=== PATIENT | male | born 1990 | race Caucasian/White ===

== ENCOUNTER 2024-05-11 17:37 | Inpatient (IN) | payer SELFPAY ==
[~2024-05-11] VITALS: Ht 175.3 cm; Wt 89.9 kg
[2024-05-11] MEDS: ketOROlac 60 MG VIAL (30MG/ML) IM ONE (20:03)
[2024-05-11] MEDS: CYCLOBENZAPRINE HCL 10 MG TABLET PO ONE (20:03)
[2024-05-11 20:49] LABS: BASOPHILS # (AUTO) 0.03 K/uL (0.00-0.20); BASOPHILS % (AUTO) 0.3 % (0.0-5.0); EOSINOPHILS # (AUTO) 0.04 K/uL (0.00-0.70); EOSINOPHILS % (AUTO) 0.3 % (0.0-8.0); HEMATOCRIT 45.9 % (42-54); IMMATURE GRANULOCYTE ABSOLUTE 0.05 K/uL (0-1); LYMPHOCYTES # (AUTO) 1.1 K/uL (1.0-4.8); LYMPHOCYTES % (AUTO) 9.8 % (21.0-51.0); MEAN CORPUSCULAR HEMOGLOBIN 31.1 pg (27.0-33.0); MEAN CORPUSCULAR HGB CONC 34.9 g/dL (32.0-36.0); MEAN CORPUSCULAR VOLUME 89.3 fL (79-99); MONOCYTES # (AUTO) 0.8 K/uL (0.1-1.0); MONOCYTES % (AUTO) 6.9 % (3.0-13.0); NEUTROPHILS # (AUTO) 9.5 K/uL (1.8-7.7); NEUTROPHILS % (AUTO) 82.3 % (40.0-77.0); PLATELET COUNT (AUTO) 235 K/uL (130-400); RED BLOOD CELL COUNT(AUTO) 5.14 MIL/uL (4.50-6.20); RED CELL DISTRIBUTION WIDTH 12.4 % (11.0-15.5); WHITE BLOOD COUNT (AUTO) 11.5 K/uL (4.8-10.8)
[2024-05-11 20:58] LABS: POTASSIUM 3.6 mmol/L (3.5-5.1)
[2024-05-11 21:07] LABS: INFLUENZA TYPE A Negative For Type A (NEGATIVE); INFLUENZA TYPE B Negative For Type B (NEGATIVE)
[2024-05-11 21:08] LABS: RAPID GROUP A STREP negative (NEGATIVE)
[2024-05-11 21:10] LABS: COVID19 (SARS ANTIGEN RAPID) PRESUMPTIVE NEGATIVE (NEGATIVE)
[2024-05-11] MEDS: ondanSETRON 4MG INJ IVP ONE (21:35)
[2024-05-11] MEDS: hydroMORPHone 0.5 MG SYG (0.5MG/0.5ML) IVP ONE (21:35)
[2024-05-11] MEDS ORDERED: doCUSate SODIUM 100 MG CAP PO PRN (22:30)
[2024-05-11] MEDS ORDERED: acetaMINOPHEN 650 MG SUPPOSITORY RC PRN (22:30)
[2024-05-11] MEDS ORDERED: acetaMINOPHEN 325 MG TAB PO PRN (22:30)
[2024-05-11] MEDS ORDERED: LACTULOSE 20 GM/30 ML UDCUP PO PRN (22:30)
[2024-05-11] MEDS ORDERED: hydrALAZine 20MG/ML VIAL IV PRN (22:30)
[2024-05-11] MEDS: GABApentin 100 MG CAPSULE PO SCH (23:03)
[2024-05-11] MEDS: LACTATED RINGERS 1000ML 1,000 ML IV SCH (23:03)
[2024-05-11] MEDS: LIDOCAINE 4% ADH..PATCH TP SCH (23:03)
[2024-05-11] MEDS ORDERED: MAGNESIUM 2GM PREMIX 50ML 50 ML IV PRN (23:30)
[2024-05-11] MEDS ORDERED: PoTASSium chl 10% ELIXIR 20MEQ 20 MEQ/15 ML UDCUP PO PRN (23:30)
[2024-05-11] MEDS ORDERED: DEXTROSE 50%-WATER 50 ML DISP.SYRIN IV PRN (23:30)
[2024-05-11] MEDS ORDERED: GLUCAGON 1MG KIT 1 MG ML IM PRN (23:30)
[2024-05-11] MEDS ORDERED: PoTASSium chloRIDE 20MEQ/100ML 100 ML IV PRN (23:30)
[2024-05-11] MEDS ORDERED: PoTASSium chloRIDE 20MEQ ER 20 MEQ ERTAB PO PRN (23:30)
[2024-05-11 23:45] VITALS: BP 116/67; PULSE 76; RESP 19; TEMP 98.6
[2024-05-12] MEDS: 0.9%NACL 1000ML 1,000 ML IV SCH
[2024-05-12 05:07] VITALS: BP 115/71; PULSE 74; RESP 18; TEMP 98.8
[2024-05-12 05:30] LABS: BASOPHILS # (AUTO) 0.03 K/uL (0.00-0.20); BASOPHILS % (AUTO) 0.3 % (0.0-5.0); EOSINOPHILS # (AUTO) 0.12 K/uL (0.00-0.70); EOSINOPHILS % (AUTO) 1.3 % (0.0-8.0); HEMATOCRIT 44.4 % (42-54); IMMATURE GRANULOCYTE ABSOLUTE 0.06 K/uL (0-1); LYMPHOCYTES # (AUTO) 1.3 K/uL (1.0-4.8); MEAN CORPUSCULAR HGB CONC 34.2 g/dL (32.0-36.0); MEAN CORPUSCULAR VOLUME 90.6 fL (79-99); MONOCYTES # (AUTO) 0.7 K/uL (0.1-1.0); MONOCYTES % (AUTO) 8.3 % (3.0-13.0); NEUTROPHILS # (AUTO) 6.7 K/uL (1.8-7.7); NEUTROPHILS % (AUTO) 74.4 % (40.0-77.0); PLATELET COUNT (AUTO) 239 K/uL (130-400); RED CELL DISTRIBUTION WIDTH 12.6 % (11.0-15.5)
[2024-05-12 06:03] LABS: CREATININE 1.2 mg/dL (0.5-1.3); PHOSPHORUS 3.9 mg/dL (2.5-4.9); POTASSIUM 3.8 mmol/L (3.5-5.1); THYROID STIMULATING HORMONE 1.05 uIU/mL (0.36-3.74)
[2024-05-12] MEDS: INSULIN humuLIN R 100 UNIT/ML 3ML SQ SCH (06:35)
[2024-05-12] MEDS: hydroMORPHone 1 MG INJ IVP PRN (06:55)
[2024-05-12 08:00] VITALS: BP 115/71; PULSE 63; RESP 14; TEMP 100.1; O2SAT 92
[2024-05-12] MEDS ORDERED: APIXaban 5 MG TABLET PO SCH (09:00)
[2024-05-12] MEDS: PANTOPrazole 40 MG/VIAL IVP SCH (10:33)
[2024-05-12 12:00] VITALS: BP 119/78; PULSE 62; RESP 20; TEMP 98.6
[2024-05-12 16:00] VITALS: BP 110/76; PULSE 104; RESP 20; TEMP 99.6
[2024-05-12 20:00] VITALS: BP 135/81; PULSE 92; RESP 16; TEMP 100.6; O2SAT 98
[2024-05-12] MEDS: HYDROcodone/APAP 5/325 1 TAB TABLET PO PRN (20:35)
[2024-05-12 22:03] LABS: ADD UA MICROSCOPIC YES; APPEARANCE,URINE CLEAR (CLEAR); BILIRUBIN,URINE NEGATIVE (NEGATIVE); COLOR,URINE COLORLESS (YELLOW); GLUCOSE, URINE (UA) NEGATIVE (NEGATIVE); KETONES,URINE NEGATIVE (NEGATIVE); LEUKOCYTE ESTERASE ,URINE NEGATIVE Leu/uL (NEGATIVE); NITRATE,URINE NEGATIVE (NEGATIVE); OCCULT BLOOD,URINE NEGATIVE (NEGATIVE); PH,URINE 6.5 (5.0-8.0); PROTEIN,URINE NEGATIVE (NEGATIVE); UROBILINOGEN,URINE 0.2 mg/dL (0.2-1.0)
[2024-05-12 22:06] LABS: RBC,URINE 0-1 /HPF (0-1); WBC,URINE 0-1 /HPF (0-1)
[2024-05-13] VITALS (30 sets, daily range): BP systolic 110–136; BP diastolic 62–89; PULSE 59–90; RESP 14–19; TEMP 97.8–98.8; O2SAT 97–98
[2024-05-13 04:41] LABS: HEMATOCRIT 43.6 % (42-54); MEAN CORPUSCULAR HEMOGLOBIN 30.8 pg (27.0-33.0); MEAN CORPUSCULAR HGB CONC 33.5 g/dL (32.0-36.0); RED BLOOD CELL COUNT(AUTO) 4.74 MIL/uL (4.50-6.20); RED CELL DISTRIBUTION WIDTH 12.4 % (11.0-15.5); WHITE BLOOD COUNT (AUTO) 9.1 K/uL (4.8-10.8)
[2024-05-13 04:50] LABS: CREATININE 1.1 mg/dL (0.5-1.3); POTASSIUM 3.9 mmol/L (3.5-5.1)
[2024-05-13] MEDS: ondanSETRON 4MG INJ IVP PRN (09:27)
[2024-05-13] MEDS: LACTATED RINGERS 1000ML 1,000 ML IV ONE (10:45)
[2024-05-13] MEDS ORDERED: LIDOCAINE PF 100MG/5ML (2%) SYRINGE 5ML ONE (11:05)
[2024-05-13] MEDS ORDERED: dexaMETHasone SOD PHOSPHATE 10MG/ML 1ML VIAL ONE (11:06)
[2024-05-13] MEDS ORDERED: proPOFol 10 MG/ML 20ML VIAL IV ONE (11:06)
[2024-05-13] MEDS ORDERED: FENTanyl CITRate PF 50 MCG/1 ML 2ML VIAL ONE ×3 (11:06→15:42)
[2024-05-13] MEDS ORDERED: SUCCINYLCHOLINE CHLORIDE 20 MG/ML 10 ML VIAL ONE (11:06)
[2024-05-13] MEDS ORDERED: MIDAZOLAM HCL 1 MG/ML 2ML VIAL ONE (11:06)
[2024-05-13] MEDS ORDERED: ondanSETRON 4MG INJ ONE (11:06)
[2024-05-13] MEDS ORDERED: rocuRONium bROMide 10MG/1ML 5ML VL ONE (11:06)
[2024-05-13] MEDS: ceFAZolin SODIUM 2 GM VIAL ONE (11:12)
[2024-05-13] MEDS: ceFAZolin SODIUM 2 GM VIAL IVPB ONE (12:20)
[2024-05-13] MEDS ORDERED: GABApentin 100 MG CAPSULE PO SCH (14:00)
[2024-05-13] MEDS ORDERED: BUPIvacaine/PF 0.5% 30ML VIAL ONE (15:32)
[2024-05-13] MEDS ORDERED: NEOSTIGMINE METHYLSULFATE 1MG/ML IV ONE (15:43)
[2024-05-13] MEDS ORDERED: GLYCOPYRROLATE 0.2 MG/ML 5 ML VIAL ONE (15:43)
[2024-05-13] MEDS: hydroMORPHone 1 MG INJ ONE (16:21)
[2024-05-13] MEDS: acetaMINOPHEN 1,000 MG/100 ML VIAL IV ONE (16:21)
[2024-05-13] MEDS ORDERED: FERROUS FUMARATE 324 MG TABLET PO PRN (16:30)
[2024-05-13] MEDS ORDERED: DiphenhydrAMINE HCL 25 MG CAPSULE PO PRN (16:30)
[2024-05-13] MEDS ORDERED: DiphenhydrAMINE HCL 50 MG/ML VIAL IVP PRN (16:30)
[2024-05-13] MEDS: 0.9%NACL 1000ML 1,000 ML IV SCH (16:30)
[2024-05-13] MEDS ORDERED: PoTASSium chloRIDE 20MEQ ER 20 MEQ ERTAB PO PRN (16:30)
[2024-05-13] MEDS ORDERED: PoTASSium chl 10% ELIXIR 20MEQ 20 MEQ/15 ML UDCUP PO PRN (16:30)
[2024-05-13] MEDS ORDERED: traMADol HCL 50 MG TABLET PO PRN (16:30)
[2024-05-13] MEDS ORDERED: CALCIUM CARB 500MG PO PRN (16:30)
[2024-05-13] MEDS ORDERED: ceFAZolin SODIUM 2 GM VIAL IVPB SCH (16:30)
[2024-05-13] MEDS ORDERED: PoTASSium chloRIDE 20MEQ/100ML 100 ML IV PRN (16:30)
[2024-05-13] MEDS: doCUSate SODIUM 100 MG CAP PO SCH (20:00)
[2024-05-13] MEDS: GABApentin 100 MG CAPSULE PO SCH (20:01)
[2024-05-13] MEDS: ceFAZolin SODIUM 2 GM VIAL IVPB SCH (20:01)
[2024-05-13] MEDS: HYDROcodone/APAP 5/325 1 TAB TABLET PO PRN (23:36)
[2024-05-14] VITALS: BP 122/75; PULSE 103; RESP 17; TEMP 98.6
[2024-05-14] MEDS: CYCLOBENZAPRINE HCL 10 MG TABLET PO PRN (02:17)
[2024-05-14 04:00] VITALS: BP 126/63; PULSE 109; RESP 18; TEMP 98.4
[2024-05-14 04:31] LABS: HEMATOCRIT 40.4 % (42-54); MEAN CORPUSCULAR HEMOGLOBIN 30.4 pg (27.0-33.0); MEAN CORPUSCULAR HGB CONC 34.2 g/dL (32.0-36.0); RED BLOOD CELL COUNT(AUTO) 4.54 MIL/uL (4.50-6.20); RED CELL DISTRIBUTION WIDTH 12.1 % (11.0-15.5); WHITE BLOOD COUNT (AUTO) 11.6 K/uL (4.8-10.8)
[2024-05-14 04:33] LABS: POTASSIUM 4.1 mmol/L (3.5-5.1)
[2024-05-14 04:36] LABS: PROTHROMBIN TIME 10.8 SEC (9.6-11.6)
[2024-05-14] MEDS: polyETHYLene GLYCol 3350 17 GM POWD.PACK PO SCH (08:11)
[2024-05-14 08:15] VITALS: O2SAT 97
[2024-05-14] MEDS: PSYLLIUM SEED 1 EACH PACKET PO SCH (11:08)
[2024-05-14 12:00] VITALS: BP 130/81; PULSE 93; RESP 18; TEMP 99.1
[2024-05-14] MEDS: LACTULOSE 20 GM/30 ML UDCUP PO ONE (12:29)
[2024-05-14] MEDS: GABApentin 100 MG CAPSULE PO SCH (14:22)
[2024-05-14 16:00] VITALS: BP 134/87; PULSE 86; RESP 18; TEMP 98.3
[2024-05-14 20:00] VITALS: BP 138/83; PULSE 116; RESP 18; TEMP 98.7; O2SAT 97
[2024-05-15] VITALS (7 sets, daily range): BP systolic 116–142; BP diastolic 75–86; PULSE 88–120; RESP 18–20; TEMP 98.2–98.9; O2SAT 97
[2024-05-15] MEDS: TEMAZepam 15 MG CAPSULE PO PRN (00:16)
[2024-05-15 04:19] LABS: HEMATOCRIT 37.4 % (42-54); MEAN CORPUSCULAR HEMOGLOBIN 31.1 pg (27.0-33.0); MEAN CORPUSCULAR HGB CONC 34.2 g/dL (32.0-36.0); RED BLOOD CELL COUNT(AUTO) 4.11 MIL/uL (4.50-6.20); RED CELL DISTRIBUTION WIDTH 12.3 % (11.0-15.5)
[2024-05-15 04:31] LABS: PROTHROMBIN TIME 10.8 SEC (9.6-11.6)
[2024-05-15 04:32] LABS: POTASSIUM 3.8 mmol/L (3.5-5.1)
[2024-05-15] MEDS ORDERED: BisaCODYL 5 MG TABLET.DR PO PRN (16:30)
[2024-05-15] MEDS: ketOROlac 15MG/ML VIAL (15MG/ML) IV PRN (21:18)
[2024-05-16 04:00] VITALS: BP 128/74; PULSE 80; RESP 18; TEMP 98.1
[2024-05-16 04:15] LABS: INR <= 0.93 (0.85-1.15)
[2024-05-16 08:00] VITALS: BP 121/81; PULSE 98; RESP 15; TEMP 99.1
[2024-05-16 08:30] VITALS: O2SAT 97
[2024-05-16 11:46] VITALS: BP 123/67; PULSE 74; RESP 16; TEMP 99
[2024-05-16] MEDS ORDERED: ASPI-1012 PO (15:04)
[2024-05-16] MEDS ORDERED: CYCL-309 PO (15:04)
[2024-05-16] MEDS ORDERED: GABA100C PO (15:04)
[2024-05-16] MEDS ORDERED: HYDR-4060 PO (15:04)
[2024-05-16] MEDS ORDERED: DOCU-116 PO (15:04)
[2024-05-16 16:00] VITALS: BP 121/76; PULSE 77; RESP 18; TEMP 98.8
[2024-05-16] MEDS ORDERED: BisaCODYL 10 MG SUPP.RECT RC PRN (16:30)
== END 2024-05-16 18:20 | disposition home or self-care (01) | DRG 493 ==
LOC: EDH 17:37 → EDHIP 21:32 → 4DH 22:47
PROVIDERS: ADMIT Internal Medicine; ATTEND Internal Medicine
PROC: 0QSG04Z Reposition Right Tibia with Internal Fixation Device, Open Approach (ICD-10-PCS; principal; 2024-05-13 12:06)
DX: S82.141A Displaced bicondylar fracture of right tibia, initial encounter for closed fracture (principal); E87.1 Hypo-osmolality and hyponatremia; E87.8 Other disorders of electrolyte and fluid balance, not elsewhere classified; D72.829 Elevated white blood cell count, unspecified; G89.18 Other acute postprocedural pain; I10 Essential (primary) hypertension; K59.00 Constipation, unspecified; M25.461 Effusion, right knee; Z20.822 Contact with and (suspected) exposure to COVID-19; Z88.5 Allergy status to narcotic agent; Z88.8 Allergy status to other drugs, medicaments and biological substances; Z79.899 Other long term (current) drug therapy; Y93.51 Activity, roller skating (inline) and skateboarding; Y92.89 Other specified places as the place of occurrence of the external cause; Y99.8 Other external cause status
CPT/HCPCS: 36415; 73552; 73564; 73590; 73700; 80048; 81001; 82550; 82948; 83735; 84100; 84443; 85025; 85027; 85610; 87426; 87804; 87880; 96372; 96374; 96375; G0378; J0330; J1100; J1170; J1885; J2001; J2250; J2405; J2470; J2704; J2710; J3010; J3490; J7120; A4213; A4216; A4222; A4223; J0665; J0690